=== PATIENT | male | born 1990 | race Caucasian/White ===

== ENCOUNTER 2017-12-15 11:29 | Emergency (ER) | payer SELFPAY ==
[~2017-12-15] VITALS: Ht 180.3 cm; Wt 72.6 kg
[2017-12-15 11:45] VITALS: Ht 180.3 cm; Wt 72.6 kg
[2017-12-15 13:27] VITALS: BP 135/82
== END 2017-12-15 13:27 | disposition home or self-care (01) ==
LOC: ED 11:29
DX: M54.5 Low back pain (principal); X50.1XXA Overexertion from prolonged static or awkward postures, initial encounter; Y93.E8 Activity, other personal hygiene; Y99.8 Other external cause status; Y92.89 Other specified places as the place of occurrence of the external cause
CPT/HCPCS: J1885

== ENCOUNTER 2019-11-07 20:01 | Emergency (ER) | payer OTHER ==
[~2019-11-07] VITALS: Ht 180.3 cm; Wt 80.1 kg
[2019-11-07 20:34] VITALS: Ht 180.3 cm; Wt 80.1 kg
[2019-11-07 21:15] VITALS: BP 110/74
== END 2019-11-07 22:11 | disposition home or self-care (01) ==
LOC: ED 20:01
DX: S52.502A Unspecified fracture of the lower end of left radius, initial encounter for closed fracture (principal); W11.XXXA Fall on and from ladder, initial encounter; Y93.89 Activity, other specified; Y92.89 Other specified places as the place of occurrence of the external cause; Y99.8 Other external cause status
CPT/HCPCS: A4570; Q0092

== ENCOUNTER 2020-12-27 14:52 | Emergency (ER) | payer OTHER ==
[~2020-12-27] VITALS: Ht 182.9 cm; Wt 93.0 kg
[2020-12-27 15:00] VITALS: Ht 182.9 cm; Wt 93.0 kg
[2020-12-27] MEDS ORDERED: MOT400 PO (16:17)
[2020-12-27 16:21] VITALS: BP 139/71
== END 2020-12-27 16:21 | disposition home or self-care (01) ==
LOC: ED 14:52
DX: S20.211A Contusion of right front wall of thorax, initial encounter (principal); S40.012A Contusion of left shoulder, initial encounter; V49.9XXA Car occupant (driver) (passenger) injured in unspecified traffic accident, initial encounter; Y93.89 Activity, other specified; Y92.488 Other paved roadways as the place of occurrence of the external cause; Y99.8 Other external cause status
CPT/HCPCS: J1885